=== PATIENT | female | born 1990 | race Caucasian/White ===

== ENCOUNTER 2021-10-16 08:03 | Outpatient (CLI) | payer OTHER, SELFPAY | END 2021-10-16 08:04 | disposition home or self-care (01) | LOC: ANHAUDIO 08:08 | DX: R42 Dizziness and giddiness (principal); H90.3 Sensorineural hearing loss, bilateral | CPT/HCPCS: 92537; 92540; 92546; 92557; 92567 ==

== ENCOUNTER 2022-01-06 12:04 | Emergency (ER) | payer OTHER, SELFPAY ==
--- NOTE | 2022-01-06 12:13 | ED.GENADULT ---
HPI - General Adult General Chief complaint: Back Pain/Injury Stated complaint: back pain and pressure Discharge Plan Discharge Follow-up/Referrals: Kathi,Babatunde Bradley MD [Primary Care Provider] -
[2022-01-06 12:15] VITALS: BP 112/87; PULSE 78; RESP 16; TEMP 36.5; O2SAT 100
--- NOTE | 2022-01-06 12:16 | ED.FEMALEGU ---
HPI - Female Genitourinary General Chief complaint: Urogenital-Female Stated complaint: back pain and pressure Time Seen by Provider: 01/06/22 12:31 Source: patient and RN notes reviewed Mode of arrival: ambulatory Limitations: no limitations History of Present Illness HPI Narrative: 31-year-old female presents concern for right flank pain and urine frequency. She reports pain started overnight. She reports that radiates around her side to her lower right abdomen. She reports a history of both pyelonephritis and nephrolithiasis. She denies urgency, dysuria, gross hematuria. She does report a history of blood in her urine. She denies fever, bodies, chills, sweats. She reports when she had pyelonephritis her symptoms are very similar to this she never had general malaise, fever, body aches etc. She reports she also had similar symptoms when she had nephrolithiasis in the past. She denies intervention MD elicited complaint: flank pain Related Data Home Medications Medication Instructions Recorded Confirmed lisinopril 20 mg tablet 20 mg PO DAILY 01/06/22 01/06/22 Allergies Allergy/AdvReac Type Severity Reaction Status Date / Time vancomycin Allergy Rash Verified 01/06/22 12:14 Review of Systems Review of Systems: CONSTITUTIONAL: Denies malaise, chills, sweats, or fever. CARDIOVASCULAR: Denies chest pain, palpitations, or edema. RESPIRATORY: Denies cough or dyspnea. GASTROINTESTINAL: Denies abdominal pain, nausea, vomiting, diarrhea GENITOURINARY: Denies dysuria, urgency, suprapubic pressure, discolored urine. Reports right flank pain that radiates to the right lower abdomen, urine frequency SKIN: Denies rash or itching. MUSCULOSKELETAL: Denies back pain or myalgia. All systems reviewed & are unremarkable except as noted in HPI and below [facility] Comments At time of signature, agree with nursing past medical, surgical, social and family history. There is no relevant family history pertinent to the presenting complaint Exam Narrative: GENERAL: Nontoxic appearing and in no acute distress. HEAD: Normocephalic. EYES: PERRLA, conjunctivae clear. NECK: Supple. No lymphadenopathy CHEST: Clear to auscultation. No respiratory distress. HEART: Regular rate and rhythm. SKIN: Warm, dry, no rash. NEURO: Alert and oriented x3. PSYCH: Normal mood and affect Course Course Emergency Course: Patient is aware of, understands and agrees to transfer to the emergency department. Patient is stable for transfer via private vehicle and agrees to proceed directly to the emergency department. Portions of this record may have been created with voice recognition software Level of Care: Express Care Visit Vital Signs Vital signs: Vital Signs Temperature 97.7 F 01/06/22 12:15 Pulse Rate 78 01/06/22 12:15 Respiratory Rate 16 01/06/22 12:15 Blood Pressure 112/87 01/06/22 12:15 Pulse Oximetry 100 01/06/22 12:15 Temperature 97.7 F 01/06/22 12:15 Pulse Rate 78 01/06/22 12:15 Respiratory Rate 16 01/06/22 12:15 Blood Pressure 112/87 01/06/22 12:15 Pulse Oximetry 100 01/06/22 12:15 Reviewed. Transfer Transfered to: [facility]: Other Transfer rationale: Flank pain, Mike pain Accepting physician: Betsy Woodson MDM - Female Genitourinary MDM Narrative Medical decision making narrative: Exam findings and UA warrant further evaluation in the emergency department. Patient is nontoxic-appearing yes Differential Diagnosis Differential diagnosis: Likely urinary tract infection, cystitis and other (Pyelonephritis, nephrolithiasis) Lab Data Labs: Urine Glucose Negative Reference Range: Negative Urine Bilirubin Negative Reference Range: Negative Urine Ketone Negative Reference Range: Negati
== END 2022-01-06 13:18 | disposition short-term general hospital (02) ==
PROVIDERS: Emergency Provider Nurse Practitioner; PCP Family Medicine
DX: R10.9 Unspecified abdominal pain (principal); I10 Essential (primary) hypertension
CPT/HCPCS: 81003; 99212; G0463

== ENCOUNTER 2022-01-06 13:56 | Emergency (ER) | payer OTHER, SELFPAY ==
--- NOTE | ~2022-01-06 | CT_ITS ---
EXAMINATION: CT abdomen pelvis wo con DATE: 01/06/2022 17:16 INDICATION: Right-sided flank pain TECHNIQUE: Computed tomography (CT) of the abdomen and pelvis was performed without intravenous contr ast. The dose-length product was 1640.21 mGy-cm. Automated exposure control and iterative reconstruct ion technique were employed. COMPARISON: None. FINDINGS: Lung bases are unremarkable. Heart size normal. No significant pleural or pericardial effus ion. No significant vascular abnormality. No lymphadenopathy. Status post cholecystectomy. The liver, spleen, pancreas, adrenal glands and kidneys are unremarkable . No renal/ureteral stones or hydronephrosis. Nonobstructive bowel pattern. The appendix is not posit ively visualized. There is no pericecal inflammatory change to suggest appendicitis. No free air or free fluid. No abnormal pelvic masses or fluid collections. There is degenerative disc disease at L5- S1. No acute osseous abnormality. IMPRESSION: 1. No acute abdominal abnormality. Reviewed, dictated and finalized at location A.
[2022-01-06 13:57] VITALS: BP 129/79; PULSE 90; RESP 16; TEMP 36.1; O2SAT 100
--- NOTE | 2022-01-06 14:37 | ED.ABDPAIN ---
HPI - Abdominal Pain General Chief Complaint: Abdominal Pain Stated Complaint: right flank pain Time Seen by Provider: 01/06/22 14:36 Source: patient Mode of arrival: ambulatory Limitations: no limitations History of Present Illness HPI narrative: Patient is 31 years old white female drove herself to the emergency room, complaining of pain at the right flank area started last night while sleeping, sharp, shooting to the right lower quadrant similar to her previous diagnosis of kidney stone. Patient reports frequent urination without any burning sensation or urgency. She denies any fever, chills, vomiting or diarrhea, constipation, vaginal bleeding or discharge. No family member at the bedside Related Data Home Medications Medication Instructions Recorded Confirmed lisinopril 20 mg tablet 20 mg PO DAILY 01/06/22 01/06/22 Allergies Allergy/AdvReac Type Severity Reaction Status Date / Time vancomycin Allergy Rash Verified 01/06/22 12:14 Review of Systems Review of Systems: All systems reviewed & are unremarkable except as noted in HPI and below Exam Narrative: General appearance: Well-developed, well-nourished, morbidly obese, does not look in pain or distress Skin: Normal color Head: Normocephalic, nontraumatic Eyes: Clear conjunctiva ENT: Oropharynx normal, ears normal, nose normal Neck: Supple, nontender Chest and respiratory: Airway patent, no respiratory distress, no accessory muscle use Heart: Regular rate/rhythm Abdomen: Soft, slight tenderness right lower quadrant and right flank, no organomegaly, quiet bowel sounds Vascular: Normal peripheral pulses, normal capillary refill. Musculoskeletal: Normal range of motion, nontender back Neurologic: Alert and oriented ?3, [employer] is normal as tested, no gross motor deficit Course Vital Signs Vital signs: Vital Signs Temperature 36.1 C L 01/06/22 13:57 Pulse Rate 90 01/06/22 13:57 Respiratory Rate 16 01/06/22 13:57 Blood Pressure 129/79 01/06/22 13:57 Pulse Oximetry 100 01/06/22 13:57 Oxygen Delivery Room Air 01/06/22 13:57 Temperature 36.1 C L 01/06/22 13:57 Pulse Rate 90 01/06/22 13:57 Respiratory Rate 16 01/06/22 13:57 Blood Pressure 129/79 01/06/22 13:57 Pulse Oximetry 100 01/06/22 13:57 Oxygen Delivery Room Air 01/06/22 13:57 MDM - Abdominal Pain Lab Data Result diagrams: 01/06/22 14:04 01/06/22 14:04 Labs: Lab Results 01/06/22 01/06/22 01/06/22 Range/Units 14:04 14:04 14:10 WBC 13.2 H (4.5-10.0) K/mm3 RBC 5.01 (4.2-5.4) M/mm3 Hgb 14.8 (12.0-15.0) g/dL Hct 44.2 (37.0-47.0) % MCV 88.2 (80-100) fl MCH 29.5 (26-34) pg MCHC 33.5 (32-36) g/dl RDW 12.4 (11.5-14.5) % Plt Count 290 (150-375) k/mm3 MPV 10.1 (7.4-10.4) fl Immature Gran % (Auto) 0.5 (0-0.5) % Neut % (Auto) 57.1 (45.5-73.1) % Lymph % (Auto) 32.2 (18.3-44.2) % Williamson % (Auto) 7.5 (2.6-8.5) % Eos % (Auto) 2.1 (0-4.4) % Baso % (Auto) 0.6 (0.2-1.2) % Lymph # (Auto) 4.23 H (0.9-3.2) K/mm3 Williamson # (Auto) 1.0 H (0.1-0.6) K/mm3 Eos # (Auto) 0.3 (0-0.3) K/mm3 Baso # (Auto) 0.1 (0.0-0.1) K/mm3 Abs Immat Gran (auto) 0.06 H (0.00-0.031) K/mm3 Absolute Neuts (auto) 7.5 H (1.3-6.7) K/mm3 Absolute Nucleated RBC 0.0 (0.0-0.012) K/mm3 Nucleated RBC % 0.0 (0.0-0.2) % Sodium 137 (137-145) mmol/L Potassium 4.0 (3.4-5.0) mmol/L Chloride 105 (98-107) mmol/L Carbon Dioxide 27 (22-30) mmol/L Anion Gap 5 L (8-16) mmol/L BUN 11 (7-17) mg/dL Creatinine 0.80 (0.7-1.0) mg/dL Estim Creat Clear Calc 135 ml/m
[2022-01-06 14:50] LABS: Basophils Absolute Auto 0.1 K/mm3 (0.0-0.1); Basophils Percent Auto 0.6 % (0.2-1.2); Eosinophils Absolute Auto 0.3 K/mm3 (0-0.3); Eosinophils Percent Auto 2.1 % (0-4.4); Hematocrit 44.2 % (37.0-47.0); Hemoglobin 14.8 g/dL (12.0-15.0); Immature Granulocyte Absolute 0.06 K/mm3 (0.00-0.031); Immature Granulocyte Percent A 0.5 % (0-0.5); Lymphocytes Absolute Auto 4.23 K/mm3 (0.9-3.2); Lymphocytes Percent Auto 32.2 % (18.3-44.2); Mean Corpuscular HGB Conc 33.5 g/dl (32-36); Mean Corpuscular Hemoglobin 29.5 pg (26-34); Mean Corpuscular Volume 88.2 fl (80-100); Mean Platelet Volume 10.1 fl (7.4-10.4); Monocytes Percent Auto 7.5 % (2.6-8.5); Neutrophils Absolute Auto 7.5 K/mm3 (1.3-6.7); Neutrophils Percent Auto 57.1 % (45.5-73.1); Platelet Count Result 290 k/mm3 (150-375); Red Blood Count 5.01 M/mm3 (4.2-5.4); Red Cell Distribution Width 12.4 % (11.5-14.5); White Blood Count 13.2 K/mm3 (4.5-10.0)
[2022-01-06 14:51] LABS: Appearance Urine Clear (Clear); Bilirubin Urine Negative (Negative); Blood Urine 2+ (Negative); Color Urine Yellow (Yellow); Glucose Urine UA Negative (Negative); Ketones Urine Negative (Negative); Leukocyte Esterase Ur Negative LEU/UL (Negative); Nitrate Urine Negative (Negative); Protein Urine Negative (Negative); Specific Grav Ur 1.015 (1.001-1.035); Urobilinogen Urine 0.2 mg/dL (<2.0); pH Urine 5.5 (5.0-9.0)
[2022-01-06 14:54] LABS: Alanine Aminotransferase 27 U/L (6-35); Albumin Level 4.4 g/dL (3.5-5.1); Alkaline Phosphatase 88 U/L (38-126); Anion Gap 5 mmol/L (8-16); Aspartate Amino Transferase 26 U/L (14-36); Bilirubin,Total 0.7 mg/dL (0.2-1.3); Blood Urea Nitrogen 11 mg/dL (7-17); Carbon Dioxide 27 mmol/L (22-30); Chloride 105 mmol/L (98-107); Estimated CRCL calculation 135 ml/min; Estimated Glomerular Filt Rate > 60; Glucose 102 mg/dL (65-110); Sodium 137 mmol/L (137-145)
[2022-01-06 14:58] LABS: Add Urine Microscopic? YES
[2022-01-06] MEDS: TAMSULOSIN HCL 0.4 MG CAPSULE PO (15:15)
[2022-01-06] MEDS: SODIUM CHLORIDE 0.9% IV 1,000 ML 999 ML IV CONT (15:15)
[2022-01-06 15:37] LABS: Bacteria Urine Trace /hpf; Mucus Urine Rare /lpf; Squamous Epithelial Cell Urine Many /hpf (Few); WBC Urine 0-3 /hpf
[2022-01-06 18:39] VITALS: BP 102/51; PULSE 72; RESP 18; O2SAT 99
== END 2022-01-06 18:35 | disposition home or self-care (01) ==
PROVIDERS: Emergency Provider Emergency Medicine; PCP Family Medicine
DX: R10.31 Right lower quadrant pain (principal)
CPT/HCPCS: 36415; 74176; 80053; 81001; 81003; 81025; 85025; 96360; 99212; 99283; 99284; A9270; G0463; J7030

== ENCOUNTER 2022-03-26 19:19 | Emergency (ER) | payer OTHER, SELFPAY ==
--- NOTE | 2022-03-26 19:22 | ED.URI ---
HPI - URI/Sore Throat General Chief Complaint: Upper Respiratory Infection Stated Complaint: cough, right ear pain,stomach pain Time Seen by Provider: 03/26/22 19:22 Source: patient and RN notes reviewed Mode of arrival: ambulatory Limitations: no limitations History of Present Illness HPI Narrative: 32-year-old female presents to the [facility] with complaints of cough, right ear pain. Patient reports that she was seen at [facility] emergency room on Saturday, 3 days ago diagnosed with colitis, scheduled for a colonoscopy on with Dr. Pace. Patient states that she was started on Augmentin which she reports she is taking. States after being discharged from the ER she started with a cough and right ear pain for the last 2 days. Patient is currently a smoker. Denies any fevers. States that since she has been discharged from the ER she has not been able to keep much food down but she is staying hydrated. Related Data Home Medications Medication Instructions Recorded Confirmed lisinopril 20 mg tablet 20 mg PO DAILY 01/06/22 01/06/22 amoxicillin 875 mg-potassium tablet 03/26/22 clavulanate 125 mg tablet Allergies Allergy/AdvReac Type Severity Reaction Status Date / Time vancomycin Allergy Rash Verified 01/06/22 12:14 Review of Systems Review of Systems: All systems reviewed & are unremarkable except as noted in HPI and below Constitutional: Constitutional: Reports no additional constitutional complaints, Denies chills and Denies fever(s) Eyes: Eyes: Reports no additional eye complaints ENT: Reports as per HPI and Reports otalgia (right ear) Cardiovascular: Cardiovascular: Reports no additional cardiovascular complaints Respiratory: Respiratory: Reports as per HPI, Reports cough, Denies dyspnea and Reports wheezing Gastrointestinal: Gastrointestinal: Reports as per HPI, Reports abdominal pain, Reports nausea and Reports vomiting Comments: Was evaluated and diagnosed with colitis 3 days ago at [facility] emergency room Musculoskeletal: Musculoskeletal: Reports no additional musculoskeletal complaints Integumentary/Breasts: Skin/Breast: Reports system reviewed and no additional complaints, except as docu Neurologic: Reports system reviewed and no additional complaints, except as documented Psychiatric: Psychiatric: Reports no additional psychiatric complaints Allergic/Immunologic: Allergic/Immunologic: Reports no additional allergic/immunologic complaints PMFSH Past Medical History Medical History History of high blood pressure Social History Social History (Updated 03/26/22 @ 19:40 by Oralia Hernandez APRN) Smoking status: Current every day smoker Gender identity (if verbalized by the patient): Female Comments At the time of my signature, I reviewed and agree with the nursing past medical, surgical, social, and family history. There is no relevant family history pertinent to the patient complaint. Exam Const: General: healthy appearing, no acute distress and alert Nutritional Appearance: well nourished and obese Orientation/consciousness: patient oriented x3 Limitations: no limitations HENMT: Head: normal to inspection Ears: external ears normal and TM abnormal bulging on the right and with fluid behind the TM bilateral; not erythematous General nose exam: Normal external nose present Face and sinus: normal facial exam Mouth: Yes Normal oral and palatal mucosa present, Yes lip normal and Yes moist mucous membranes Throat: posterior oropharynx normal and uvula midline Eyes: General: appearance normal, both eyes and all related structures Pupils: Equal, round and reactive pupils present Neck: Neck: normal visual inspection, no lymphadenopathy and no meningeal signs Chest: Chest palpation & inspection: normal inspection of the chest Resp: Effort & Inspection: normal respiratory effort and no use of accessory mu
[2022-03-26 19:29] VITALS: BP 125/86; PULSE 99; RESP 20; TEMP 37.4; O2SAT 98
== END 2022-03-26 19:38 | disposition home or self-care (01) ==
PROVIDERS: Emergency Provider Nurse Practitioner; PCP Family Medicine
DX: J20.9 Acute bronchitis, unspecified (principal); I10 Essential (primary) hypertension; F17.210 Nicotine dependence, cigarettes, uncomplicated
CPT/HCPCS: 99213; G0463